=== PATIENT | male | born 1990 | race Caucasian/White ===

== ENCOUNTER 2018-09-15 10:35 | Emergency (ER) | payer OTHER, MEDICAID ==
[2018-09-15] MEDS: IBUPROFEN 800 MG TAB PO (11:34)
== END 2018-09-15 13:26 | disposition home or self-care (01) ==
LOC: FTE 10:35
DX: L08.9 Local infection of the skin and subcutaneous tissue, unspecified (principal); Z87.891 Personal history of nicotine dependence
CPT/HCPCS: 73140; 99283-25